=== PATIENT | female | born 1980 | race Caucasian/White ===

== ENCOUNTER → 2018-05-23 | Outpatient (CLI) | payer OTHER | LOC: FIMAGING 09:54 | PROVIDERS: ATTEND Obstetrics & Gynecology | DX: O09.522 Supervision of elderly multigravida, second trimester (principal); Z3A.19 19 weeks gestation of pregnancy ==

== ENCOUNTER 2018-07-10 20:29 | Observation (INO) | payer OTHER ==
--- NOTE | 2018-07-10 21:05 | PDGENHP ---
<Radha Felix E - Last Filed: 07/10/18 21:55> History and Physical History and Physical: Care: [facility] HPI: Patient is a 38yo with IUP@26 weeks that presents to L&D with complaints of ?LOF x 1-2 weeks. She reports having some back pain and increasing pelvic pressure. She denies any strong/intense contractions or VB. She reports active baby. EDC: 10/14/18 Her is complicated by: ama, rh negative Review of Systems: Constitutional: Denies any fever, chills, or fatigue HEENT: denies any visual changes, difficulty swallowing, hearing loss Cardiovascular: Denies any chest pain, palpitations, leg swelling Respiratory: denies any cough, wheezing, or shortness of breathe GI: Denies any nausea, vomiting, diarrhea, constipation : denies any dysuria, urgency, frequency, vaginal bleeding Musculoskeletal: denies any muscle or bone pain Skin: denies any rashes Neuro: denies any headache, seizures, lightheadedness, dizziness, or loss of consciousness Psychiatric: denies any depression, anxiety, or SI/HI thoughts HISTORY: Previous OB history: x3 Past medical history: pt denies any Past surgical history: none Social: Denies any alcohol, tobacco, or drug use. Family history: Not relevant Medications: PNV Allergies (list reaction): NKDA LABS: Rh: A Neg ABS: Neg Rubella: Immune HbsAg: NR HIV: NR VDRL: NR 1hr: not done yet GC: Neg Chlamydia: Neg Pap: Normal GBS: n/a PHYSICAL EXAM: Constitutional: WN, A&Ox3 HEENT: normocephalic atraumatic, supple Skin: Warm, dry, intact Heart: RRR, no murmur Chest: CTA-B Abdomen: Soft, nontender, gravid SVE: closed/thick/high, min amt of yellowish/white d/c noted, nitrazine neg Extremities: no edema, negative homans sign Neuro: grossly normal Psych: normal affect assessment: FHT baseline 140 +accels, no decels, moderate variability Contractions: toco quiet BSUS: breech presentation, JACOBY 11.9cm FfN Negative Amnisure Negative Assessment: 1) 38yo with IUP@26wks 2) No evidence of SROM/PTL 3) JACOBY 11.9cm 4) Cat 1 FHR tracing Plan: 1) d/c home at this time 2) keep next sched appt with [facility] 3) [facility]KC and PTL prec discussed 4) urine cx and BD affirm Pending- will treat if indicated This was reviewed with Amanda Espino MD- aware and agrees with plan of care Today's visit was approximately 60 min, of which >50% of visit 45 min, was spent face to face with pt on direct counseling/coordination of care. <Amanda Espino S - Last Filed: 07/12/18 18:06> History and Physical History and Physical: Fully agree with assessment and plan of care as was reviewed with Radha when patient was evaluated. Amanda Espino MD, [facility], [place]
== END 2018-07-10 22:00 | disposition home or self-care (01) ==
LOC: FLD 20:29
PROVIDERS: ADMIT Hospitalist; ATTEND Hospitalist
DX: O99.89 Other specified diseases and conditions complicating pregnancy, childbirth and the puerperium (principal); M54.9 Dorsalgia, unspecified; O09.522 Supervision of elderly multigravida, second trimester; O26.892 Other specified pregnancy related conditions, second trimester; Z67.91 Unspecified blood type, Rh negative; Z3A.26 26 weeks gestation of pregnancy
CPT/HCPCS: 59025; G0378

== ENCOUNTER 2018-09-18 02:56 | Observation (INO) | payer OTHER ==
[2018-09-18 04:16] LABS: PLATELET COUNT 201 10^3/uL (150-400)
--- NOTE | 2018-09-18 04:52 | GHP ---
DATE OF ADMISSION: 09/18/2018 HISTORY OF PRESENT ILLNESS: The patient is a 38-year-old, 6, para 3-0-2-3, with a last menst rual period of 01/07/2018, and an EDC of 10/14/2018, which was confirmed by an 8-week ultrasound. Rhonda magaña has had good care at [facility] since registration at 8 weeks gestation. Her pr enatal course is complicated by history of pre-eclampsia with G1 and G3, and GBS bacteria. She presents complaining of abdominal pain, back pain, and cramping over the past 24 hours that is increasing in intensity. Also, she has had some diarrhea and has not felt well all day. She denies headache, scotomata, right upper quadrant pain, or any sequelae of pre-eclampsia, and has had good fe dionisio movement, no vaginal bleeding, and no leakage of fluid. She presented for evaluation to Labor an d Delivery, and was found to have elevated blood pressures of 142/99, 147/93, and 127/93. hear t tones were 120s, reactive, category 1. She has toco showing irritability. On her cervical exam, s he is 2, 80, -2, intact, and soft. . PAST OBSTETRICAL HISTORY: 1. April of 2012, she had a viable female, 7 pounds 9 ounces, 40 weeks gestation, and had pre-eclampsia. Was readmitted, had magnesium, and her blood pressures resolved in 2 weeks. 2. May of 2013, she had a spontaneous . 3. May of 2014, a viable male, 6 pounds 15 ounces, 40 weeks gestation, vaginal delivery without c omplication. 4. July of 2016, viable female, 7 pounds 12 ounces, 38 weeks' induction for pre-eclampsia and als o readmission for magnesium and labetalol . 5. In December of this year, she had an early SAB, about 5 weeks. No D and C. GYNECOLOGIC HISTORY: She had menses at age 14. Normal periods every 28 days. Length was 5 days. S ure and regular last menstrual period of 01/07/2018. No history of abnormal Paps, STDs, or any gynec ological problems. PAST MEDICAL HISTORY: No significant past medical history. PAST SURGICAL HISTORY: Only past surgical history is an ankle surgery at age 15. ALLERGIES: She is allergic to morphine. It causes her to stop breathing. CURRENT MEDICATIONS: Only current medications include vitamins with DHA. SOCIAL HISTORY: She is . She lives with her and her 3 children. 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 She denies tobacco, alcohol, and drug use. FAMILY HISTORY: Paternal grandmother had heart disease. Mother has migraines. Paternal grandfather had esophageal cancer. Maternal grandmother, lymphoma, and an uncle with melanoma. LABS: In this , she is A negative, antibody negative. Hepatitis negative. HIV negative. RPR nonreactive. Gonorrhea and chlamydia negative. Immune to varicella. GBS is positive for bacter ia. She had an elevated 1-hour GTT at 150, a negative 3-hour GTT. REVIEW OF SYSTEMS: Negative except for pertinent positives as above in HPI. OBJECTIVE: Today, elevated blood pressure of 142/99, 147/93, 127/93, 134/86. heart tones 120s , reactive, moderate variability, category 1, irritability on toco. Cervix is 2, 80%, -2. She is in tact. Cervix is soft. ASSESSMENT AND PLAN: A 38-year-old 6, para 3-0-2-3, at 36-2/7 weeks gestation with irregular contractions, elevated blood pressures. We will observe her contraction pattern and encourage p.o. hydration, sending PIH labs and a P-to-C ratio in urine. We will watch her blood pressures and keep her for observation for now. Labor will be managed expectantly. I do not suspect active labor at th is time. /[id number]/MODL
--- NOTE | 2018-09-18 09:50 | OBPROG ---
Labor Progress Note Assessment/Plan: Assessment: 38 y/o @ 36 2/7 weeks with elevated BP and contractions. Plan: Labs are reassuring. No s/sx's pre-eclampsia now, but BP concerning for Gestational HTN and she has a significant risk with her history. I instructed pt to check her BP @ home and come to the office Wednesday for a BP check and NST. 09/18/18 09:44 Subjective/Intrapartum Course: 09/18/18 09:41 Pt rested for a few hours. She is comfortable when lying down but continues to feel tightening and pelvic pressure when standing. No LOF,VB and good FM. No ARZATE, scotomata, RUQ pain. Objective: 09/18/18 03:50 09/18/18 03:50 Uric Acid 4.5 mg/dL (2.5-6.8) 09/18/18 03:50 Total Bilirubin 0.2 mg/dL (0.1-1.4) 09/18/18 03:50 Conjugated Bilirubin 0.1 mg/dL (0.0-0.5) 09/18/18 03:50 Unconjugated Bilirubin 0.1 mg/dL (0.0-1.1) 09/18/18 03:50 AST 19 IU/L (14-46) 09/18/18 03:50 ALT 25 IU/L (9-52) 09/18/18 03:50 Lactate Dehydrogenase 564 IU/L (313-618) 09/18/18 03:50 - SVE Dilation (cm): 2 Effacement (%): 80 Station: -2 Membranes: Intact - Contraction Pattern Assessment Current Contraction Pattern: Other (Specify) (irritability) - FHR Assessment Saleh FHR (bpm): 130 FHR Pattern Variability: Moderate FHR Category: 1 - AP Antepartum Course: 09/18/18 09:43 H/o pre-eclampsia PP x 2 with G1 and G3 GBS bacturia Oxytocin Orders Assessment - Pre-Induction/Augmentation Assessment Gestational Age: 36 week(s) and 2 day(s) ICD10 Worksheet Patient Problems: Problems Problem Status Onset (spontaneous vaginal delivery) Acute
== END 2018-09-18 09:59 | disposition home or self-care (01) ==
LOC: FLD 02:56
PROVIDERS: ADMIT Obstetrics & Gynecology; ATTEND Obstetrics & Gynecology
DX: O47.03 False labor before 37 completed weeks of gestation, third trimester (principal); O16.3 Unspecified maternal hypertension, third trimester; O09.523 Supervision of elderly multigravida, third trimester; O99.820 Streptococcus B carrier state complicating pregnancy; Z67.91 Unspecified blood type, Rh negative; Z87.59 Personal history of other complications of pregnancy, childbirth and the puerperium; Z3A.36 36 weeks gestation of pregnancy
CPT/HCPCS: 59025; G0378

== ENCOUNTER 2018-09-24 04:43 | Inpatient (IN) | payer OTHER ==
[2018-09-24] MEDS ORDERED: EPSOM SALT 454 GM TP PRN (04:57)
[2018-09-24] MEDS ORDERED: IBUPROFEN 600 MG TAB PO PRN (04:57)
[2018-09-24] MEDS ORDERED: LIDOCAINE 1% 300 MG/30 ML SDV SC PRN (04:57)
[2018-09-24] MEDS ORDERED: OXYTOCIN/RINGERS LACTATE 1,000 ML IV PRN (04:57)
[2018-09-24] MEDS ORDERED: TERBUTALINE SULFATE 1 MG/ML VIAL IV PRN (04:57)
[2018-09-24] MEDS ORDERED: MISOPROSTOL 200 MCG TAB PR PRN (04:57)
[2018-09-24] MEDS ORDERED: LR 1,000 ML IV PRN (04:57)
[2018-09-24] MEDS ORDERED: OLIVE OIL 118 ML BTL MISC PRN (04:57)
[2018-09-24 05:13] LABS: PLATELET COUNT 164 10^3/uL (150-400)
[2018-09-24] MEDS ORDERED: LIDOCAINE 1% 300 MG/30 ML SDV ONE (07:09)
[2018-09-24] MEDS ORDERED: OLIVE OIL 118 ML BTL ONE (07:10)
[2018-09-24] MEDS ORDERED: MISOPROSTOL 200 MCG TAB ONE (07:10)
[2018-09-24] MEDS ORDERED: AMMONIA AROMATIC 1 EACH AMP IH ONE (07:10)
[2018-09-24] MEDS ORDERED: LR 500 ML IV PRN (08:22)
[2018-09-24] MEDS ORDERED: PENICILLIN G POTASSIUM 5,000,000 UNIT in D5W 150 ML IV ONE (08:25)
[2018-09-24] MEDS ORDERED: OXYTOCIN/RINGERS LACTATE 500 ML IV SCH (08:30)
[2018-09-24] MEDS ORDERED: fentaNYL 2MCG/ML/BUP 0.1% RTU 100 ML BAG EP ONE (10:54)
[2018-09-24] MEDS ORDERED: PHENYLEPHRINE HCL 100 MCG/ML SYR IVP PRN (11:28)
[2018-09-24] MEDS ORDERED: NALOXONE HCL 0.4 MG/ML INJ IVP PRN (11:28)
[2018-09-24] MEDS ORDERED: ONDANSETRON 4 MG/2 ML VIAL IVP PRN (11:28)
--- NOTE | 2018-09-24 11:28 | PREANESOB ---
Obstetric Pre-Anesthesia Info - General Info Proposed Procedure: vaginal delivery NPO Start Time: 07:30 (no solids after 7:30 AM today, clears throughout) : 6 Para: 3 CARMINA: 10/14/18 Gestational Age: 37 week(s) and 1 day(s) - Info Monitors: External FHR Pattern: Reassuring - Labor Status Cervical Dilation per last OB SVE: 2 Station per last OB SVE: -2 Pitocin: In Use PIH: Mild Magnesium Sulfate in Use: No Indications for Labor Analgesia: Pain Control Labor Epidural: Proposed Anesthesia Allergies/Adverse Reactions: Allergy/AdvReac Type Severity Reaction Status Date / Time morphine Allergy Verified 09/24/18 05:13 Home Medications: Medication Instructions Recorded Ranitidine HCl [Zantac 75] 2 tab PO DAILY PRN 07/05/16 Ambien 5 mg PO PRN PRN 09/24/18 Visit Medications: Generic Name Dose Route Start Last Admin Trade Name Freq PRN Reason Stop Dose Admin Lactated Ringer's 1,000 mls @ 0 mls/hr 09/24/18 04:57 09/24/18 08:41 Lr IV 09/25/18 04:56 1,000 mls PRN PRN Administration SEE PROTOCOL CONDITIONS Protocol Per Protocol Oxytocin/Lactated Ringer's 1,000 mls @ 125 mls/hr 09/24/18 04:57 Pitocin 20 Units/Lr (Premix) IV PRN PRN Post bleeding Lactated Ringer's 500 mls @ 500 mls/hr 09/24/18 08:22 Lr IV 09/25/18 08:23 PRN PRN Maternal Hypotension Oxytocin/Lactated Ringer's 500 mls @ 0 mls/hr 09/24/18 08:30 09/24/18 08:41 Pitocin 30 Units/Lr (Premix) IV 03/23/19 08:29 500 mls CONT LILIA Administration Protocol Per Protocol Penicillin G Potassium 2,500, 155 mls @ 155 mls/hr 09/24/18 12:30 000 unit/ Dextrose IV 10/24/18 12:29 Q4HRS LILIA Protocol Ibuprofen 600 mg 09/24/18 04:57 Motrin PO ONCE PRN post , pain Lidocaine HCl 300 mg 09/24/18 04:57 Lidocaine Hcl 1% SC 03/23/19 04:56 ONCE PRN episiotomy Magnesium Sulfate 454 gm 09/24/18 04:57 Epsom Salt TP 03/23/19 04:56 Q1H PRN perineal discomfort Misoprostol 800 - 1,000 mcg 09/24/18 04:57 Cytotec NJ ONCE PRN Vaginal Atony/Bleeding Heron Oil 118 ml 09/24/18 04:57 Sweet Oil MISC 03/23/19 04:56 ONCE PRN perineal massage Terbutaline Sulfate 0.25 mg 09/24/18 04:57 Brethine IV 03/23/19 04:56 ONCE PRN Tachysystole Discontinued Medications Generic Name Dose Route Start Last Admin Trade Name Freq PRN Reason Stop Dose Admin Ammonia (Aromatic Spirit) Confirm 09/24/18 07:10 Ammonia Aromatic Administered 09/24/18 07:11 Dose 1 each IH .STK-MED ONE Fentanyl/Bupivacaine HCl Confirm 09/24/18 10:54 Fentanyl/Bupivacaine/Ns 2 Mcg/Ml 0.1% (Premix Administered 09/24/18 10:55 Dose 100 ml EP .STK-MED ONE Penicillin G Potassium 5,000, 160 mls @ 160 mls/hr 09/24/18 08:25 09/24/18 09 :02 000 unit/ Dextrose IV 09/24/18 09:24 160 mls ONCE ONE Administration Protocol Lidocaine HCl Confirm 09/24/18 07:09 Lidocaine Hcl 1% Administered 09/24/18 07:10 Dose 300 mg .ROUTE .STK-MED ONE Misoprostol Confirm 09/24/18 07:10 Cytotec Administered 09/24/18 07:11 Dose 1,000 mcg .ROUTE .STK-MED ONE Heron Oil Confirm 09/24/18 07:10 Sweet Oil Administered 09/24/18 07:11 Dose 118 ml .ROUTE .STK-MED ONE - Anesthesia History Response to Local Anesthetics: Normal Anesthesia & Operative History: No Prior Problems Family Anesthesia History: Negative - Social History Substance Use/Abuse: Denies - Vital Signs Latest Vital Signs (Nursing): See nursing flowsheet Height/Weight (Nursing): Height 172.72 cm Weight 88.451 kg Weight: 88 kg Height: 173 cm - Focused Exam Neck exam: FROM Mallampati Score: Class 2 Mouth exam: normal dental/mouth exam Pulmonary: clear to auscultation Cardiovascular: regular rate and rhythym Labs: 09/24/18 05:00 09/24/18 05:00 Patient ABO/Rh A NEGATIVE 09/24/18 06:20 Uric Acid 5.6 mg/dL (2.5-6.8) 09/24/18 05:00 Total Bilirubin 0.4 mg/dL (0.1-1.4) 09/24/18 05:00 Conjugated Bilirubin 0.1 mg/dL (0.0-0.5) 09/24/18 05:00 Unconjugated Bilirubin 0.3 mg/dL (0.0-1.1) 09/24/18 05:00 AST 19 IU/L (14-46) 09/24/18 05:00 ALT 22 IU/L (9-52) 09/24/18 05:00 Lactate Dehydrogenase 492 IU/L (313-618) 09/24/18 05:00 - Plan Anesthetic Plan: ILSA Consent Signed and on Chart: Yes Patient/Guardian Understands and Agrees to Plan: Yes Urgent/Emergent Case: Agnes arce completed preop but documented later for safe timely pt care
[2018-09-24] MEDS ORDERED: LR 500 ML IV SCH (11:30)
[2018-09-24] MEDS ORDERED: fentaNYL 2MCG/ML/BUP 0.1% RTU 100 ML EP SCH (11:30)
[2018-09-24] MEDS ORDERED: PENICILLIN G POTASSIUM 2,500,000 UNIT in D5W 150 ML IV SCH (12:30)
--- NOTE | 2018-09-24 13:01 | GHP ---
DATE OF ADMISSION: 09/24/2018 HISTORY UPON ADMISSION: The patient is a 38-year-old, G6, P3, A2 with sure last menstrual period of 01/07/2018, with an estimated due date of October 14, confirmed with an 8-week ultrasound. The patie nt presented to labor and delivery at approximately 3:00 a.m. after awakening and not feeling right. She checked her blood pressure at home at 156/105. The patient presented to the labor and delivery for evaluation. Initial blood pressure was 166/103, however, subsequent blood pressures in the 120s to 130s over 90s persistently. The patient had PIH labs drawn, which are all in the normal range wit h platelets 164,000, and a P to C ratio of 1.7. With persistence of the blood pressure in the diasto lic 90s range, the patient was advised that it is prudent to proceed with delivery as the patient is now 37 weeks gestation with gestational hypertension, The patient has had 2 other pregnancies in [facility] she has had worsening to preeclampsia and needed magnesium sulfate around the . One presented with worsening pain and was readmitted after her first. The patient is hopeful that she can avoid the magnesium sulfate and would like to proceed with delivery before things worsen. The pa radha is advised that there might be mild issues for the baby, however, generally the risk is low. The patient wants to proceed and was started on Pitocin for labor induction. The patient had a favorable cervix in the office on September 23 at 3 cm dilated, 80% effaced, -2 station. Bag of rosalino er is intact and the patient is not having any regular contractions. The patient denies any headache , but occasionally feels dizzy when her blood pressure is elevated. The patient has not had nausea o r vomiting. She has essentially no peripheral edema. CURRENT LABS: Maternal blood type A negative with negative antibody screen. RPR nonreacti ve. Rubella low positive with antibody level of 12.2. Hepatitis B surface antigen is negative. HIV negative. Initial H and H 12 and 37 with a dropped to 10 and 32 mid . The patient has bee n on iron therapy. Platelets initially 239. Varicella immune. GBS culture in the urine positive at the beginning of . Pap smear negative. Gonorrhea and chlamydia negative. A 1-hour Glucol a was elevated with a followup 3-hour GTT that was normal. The patient did receive RhoGAM on July 22. A vaginal GBS culture was done later in and was negative. However, we will treat bas ed on the initial urine positive culture. CURRENT HISTORY: The patient has been followed with [facility] since 8 weeks ges tation. The patient has had several ultrasounds that have shown good estimated weight and the last o ne at 35 weeks revealed 87th percentile weight. Good fluid on ultrasound. The patient's w as complicated with pneumonia diagnosed in August and the patient had a course of Augmentin for rola atment. The patient has also had difficulty sleeping throughout the and has tried Benadryl , magnesium, and has occasionally used Ambien as she had no benefit from the other approaches. The p ivet has a blood pressure cuff at home and has been periodically monitoring her blood pressure as s he did have complications in the other pregnancies. She reports she would occasionally get more elev ated blood pressures in the 140s to 150s over 90s to 100s, but also very normal blood pressures at ti mes. Generally, the blood pressures would improve with rest. PAST MEDICAL HISTORY: No significant history. PAST SURGICAL HISTORY: Ankle surgery at the age of 15. PAST OBSTETRIC HISTORY: In April 2012, a viable female at 7 pounds 9 ounces at 40 weeks. She was arnoldo dmitted for preeclampsia and had a course of magnesium. Blood pressures normal by 2 weeks . In May 2013, a SAB. In May 2014, a viable male at 6 pounds 15 ounces at 40 weeks with a vag inal delivery, uncomplicated. In July 2016, a viable female, 7 pounds 12 ounces at 38 weeks, bein g induced for preeclampsia. Patient was sent home on antihypertensives and was readmitted with some elevated blood pressures, but did not get magnesium sulfate. In December of 2017, an early SAB. PAST HOT WALKER HISTORY: Normal with no abnormal Paps or STDs. CURRENT MEDICATIONS: Only vitamins with iron. SOCIAL HISTORY: Negative x3. Patient and lives with her and 3 children. PHYSICAL EXAMINATION: Upon admission, the patient is a well-developed, well-nourished white female i n no physical distress. Initial blood pressure 166/103, but thereafter generally 120s to 130s over 9 0s with occasional very normal low blood pressures. The patient is afebrile. See computer and chart ing for full documentation. ADMISSION LAB: Reveals a white count of 8, with H and H of 10 and 32, and platelet count a 164,000. PIH panel all normal with a creatinine of 0.7, uric acid of 5.6. Liver function tests normal. P to C ratio is 1.7. Abdomen shows a gravid uterus. heart tone monitoring reveals initially a reactive NST and then on continuous monitoring, category 1 tracing with baseline in the 140s with good variability and acc elerations. No decelerations noted. Only rare initial contractions, but now contraction frequency i s picking up with Pitocin to every 2 to 4 minutes. The patient has just received an epidural for lab or comfort. The patient has received her 1st dose of penicillin and is due for her 2nd dose in appro ximately an hour. After that point, we will perform a ROM and expect a vaginal delivery. Will watch blood pressures closely . ASSESSMENT: Intrauterine at 37 weeks gestation with gestational hypertension. Blood press ures are persisting with 90s diastolic and decision made to induce with history of progression to pre eclampsia with other pregnancies. Currently at this time, the patient is asymptomatic with lab and u rine normal. PLAN: Pitocin going currently for induction with a favorable cervix. We will AROM after the 2nd dos e of antibiotics and the patient has an epidural in place. /[id number]/MODL
--- NOTE | 2018-09-24 13:57 | OBPROG ---
Labor Progress Note Assessment/Plan: Assessment: IUP at 37w1d with gest HTN induction with pitocin baby's station higher than yesterday, likely due to ILSA, unable to AROM at this time +GBS, on PCN Plan: cont pitocin, AROM when able 09/24/18 13:53 Subjective/Intrapartum Course: 09/24/18 13:55 Pt comfortable with ILSA, Wants AROM to stim for labor - on exam /-3, can push up out of pelvis, won't AROM at this time Objective: 09/24/18 05:00 09/24/18 05:00 Patient ABO/Rh A NEGATIVE 09/24/18 06:20 Uric Acid 5.6 mg/dL (2.5-6.8) 09/24/18 05:00 Total Bilirubin 0.4 mg/dL (0.1-1.4) 09/24/18 05:00 Conjugated Bilirubin 0.1 mg/dL (0.0-0.5) 09/24/18 05:00 Unconjugated Bilirubin 0.3 mg/dL (0.0-1.1) 09/24/18 05:00 AST 19 IU/L (14-46) 09/24/18 05:00 ALT 22 IU/L (9-52) 09/24/18 05:00 Lactate Dehydrogenase 492 IU/L (313-618) 09/24/18 05:00 - SVE Dilation (cm): 4 Effacement (%): 80 Station: -3 Membranes: Intact - Contraction Pattern Assessment Current Contraction Pattern: Regular (on 14 mu/min pitocin) - FHR Assessment Saleh FHR (bpm): 130 FHR Pattern Variability: Moderate FHR Category: 1 - AP Antepartum Course: 09/24/18 13:58 gest HTN with b/p up to 150/100s, mainly 130s/90s - decision for induction, mainly 120/70-80s after ILSA Oxytocin Orders Assessment - Pre-Induction/Augmentation Assessment Gestational Age: 37 week(s) and 1 day(s) ICD10 Worksheet Patient Problems: Problems Problem Status Onset Gestational hypertension Acute
[2018-09-24] MEDS: PENICILLIN G POTASSIUM 2,500,000 UNIT in D5W 150 ML IV SCH ×2 (16:27→22:08)
--- NOTE | 2018-09-24 16:29 | OBPROG ---
Labor Progress Note Assessment/Plan: Assessment: IUP at 37w1d with gest HTN induction with pitocin AROM - abundant fluid, clear +GBS, on PCN Plan: AROM, cont on pit 09/24/18 13:53 09/24/18 16:26 Subjective/Intrapartum Course: 09/24/18 13:55 Pt comfortable with ILSA, Wants AROM to stim for labor - on exam /-3, can push up out of pelvis, won't AROM at this time 09/24/18 16:27 Pt comf now, but helped with pushing ILSA bolus once approx 2p. Able to AROM at 16:13. exam /-2, on pit 16 Objective: 09/24/18 05:00 09/24/18 05:00 Patient ABO/Rh A NEGATIVE 09/24/18 06:20 Uric Acid 5.6 mg/dL (2.5-6.8) 09/24/18 05:00 Total Bilirubin 0.4 mg/dL (0.1-1.4) 09/24/18 05:00 Conjugated Bilirubin 0.1 mg/dL (0.0-0.5) 09/24/18 05:00 Unconjugated Bilirubin 0.3 mg/dL (0.0-1.1) 09/24/18 05:00 AST 19 IU/L (14-46) 09/24/18 05:00 ALT 22 IU/L (9-52) 09/24/18 05:00 Lactate Dehydrogenase 492 IU/L (313-618) 09/24/18 05:00 - SVE Dilation (cm): 5 Effacement (%): 90 Station: -2 Membranes: AROM, Intact Amniotic Fluid Color: Clear - Contraction Pattern Assessment Current Contraction Pattern: Regular (on 16 mu/min ctxns q 3 min) - FHR Assessment Saleh FHR (bpm): 120 FHR Pattern Variability: Moderate FHR Category: 1 - Procedures Non-surgical Procedures: Amniotomy - AP Antepartum Course: 09/24/18 13:58 gest HTN with b/p up to 150/100s, mainly 130s/90s - decision for induction, mainly 120/70-80s after ILSA Oxytocin Orders Assessment - Pre-Induction/Augmentation Assessment Gestational Age: 37 week(s) and 1 day(s) ICD10 Worksheet Patient Problems: Problems Problem Status Onset Gestational hypertension Acute
--- NOTE | 2018-09-24 17:53 | OBPROG ---
Labor Progress Note Assessment/Plan: Assessment: IUP at 37w1d with gest HTN --FEELING MORE DISCOMFORT induction with pitocin AROM - abundant fluid, clear +GBS, on PCN Plan: CX CHANGED TO , pushing bolus button 09/24/18 13:53 09/24/18 16:26 09/24/18 17:50 Subjective/Intrapartum Course: 09/24/18 13:55 Pt comfortable with ILSA, Wants AROM to stim for labor - on exam /-3, can push up out of pelvis, won't AROM at this time 09/24/18 16:27 Pt comf now, but helped with pushing ILSA bolus once approx 2p. Able to AROM at 16:13. exam 2, on pit 16 09/24/18 17:50 Pt feeling discomfort. wants to push button. Cx still clear fluid. FHTs with variables, good recovery and GBTBV Objective: 09/24/18 05:00 09/24/18 05:00 Patient ABO/Rh A NEGATIVE 09/24/18 06:20 Uric Acid 5.6 mg/dL (2.5-6.8) 09/24/18 05:00 Total Bilirubin 0.4 mg/dL (0.1-1.4) 09/24/18 05:00 Conjugated Bilirubin 0.1 mg/dL (0.0-0.5) 09/24/18 05:00 Unconjugated Bilirubin 0.3 mg/dL (0.0-1.1) 09/24/18 05:00 AST 19 IU/L (14-46) 09/24/18 05:00 ALT 22 IU/L (9-52) 09/24/18 05:00 Lactate Dehydrogenase 492 IU/L (313-618) 09/24/18 05:00 - SVE Dilation (cm): 7 Effacement (%): 90 Station: -1 Membranes: AROM, Intact Amniotic Fluid Color: Clear - Contraction Pattern Assessment Current Contraction Pattern: Regular (on 16 pit, ctxns q 2-3 min) - FHR Assessment Saleh FHR (bpm): 130 FHR Pattern Variability: Moderate FHR Category: 2 (with variable decels, quick recovery) - Procedures Non-surgical Procedures: Amniotomy - AP Antepartum Course: 09/24/18 13:58 gest HTN with b/p up to 150/100s, mainly 130s/90s - decision for induction, mainly 120/70-80s after ILSA Oxytocin Orders Assessment - Pre-Induction/Augmentation Assessment Gestational Age: 37 week(s) and 1 day(s) ICD10 Worksheet Patient Problems: Problems Problem Status Onset Gestational hypertension Acute
[2018-09-24] MEDS ORDERED: MEASLES,MUMPS&RUBELLA VACC/PF 0.5 ML VIAL SC ONE (18:42)
--- NOTE | 2018-09-24 18:46 | OBDEL ---
Info Type: Vaginal Presentation at Delivery: Vertex L&D Analgesia/Anesthesia Type: Epidural GBS+: Yes (PCN x 3 doses) Intrapartum Medications: Generic Name Dose Route Start Last Admin Trade Name Freq PRN Reason Stop Dose Admin Lactated Ringer's 1,000 mls @ 0 mls/hr 09/24/18 04:57 09/24/18 08:41 Lr IV 09/25/18 04:56 1,000 mls PRN PRN Administration SEE PROTOCOL CONDITIONS Protocol Per Protocol Oxytocin/Lactated Ringer's 500 mls @ 0 mls/hr 09/24/18 08:30 09/24/18 08:41 Pitocin 30 Units/Lr (Premix) IV 03/23/19 08:29 500 mls CONT LILIA Administration Protocol Per Protocol Penicillin G Potassium 2,500, 155 mls @ 155 mls/hr 09/24/18 16:30 09/24/18 16 :27 000 unit/ Dextrose IV 10/24/18 16:29 155 mls Q4H LILIA Administration Protocol Discontinued Medications Generic Name Dose Route Start Last Admin Trade Name Freq PRN Reason Stop Dose Admin Penicillin G Potassium 5,000, 160 mls @ 160 mls/hr 09/24/18 08:25 09/24/18 09 :02 000 unit/ Dextrose IV 09/24/18 09:24 160 mls ONCE ONE Administration Protocol Penicillin G Potassium 2,500, 155 mls @ 155 mls/hr 09/24/18 12:30 09/24/18 12 :27 000 unit/ Dextrose IV 10/24/18 12:29 155 mls Q4HRS LILIA Administration Protocol - Hospital Course Intrapartum: 09/24/18 13:55 Pt comfortable with ILSA, Wants AROM to stim for labor - on exam /-3, can push up out of pelvis, won't AROM at this time 09/24/18 16:27 Pt comf now, but helped with pushing ILSA bolus once approx 2p. Able to AROM at 16:13. exam /-2, on pit 16 09/24/18 17:50 Pt feeling discomfort. wants to push button. Cx /-1 still clear fluid. FHTs with variables, good recovery and GBTBV Indications for Delivery: Gestational Hypertension Vaginal Delivery - Delivery Provider Delivery Physician/CNM: Pamela Morgan - Labor and Delivery Onset of Contractions Date: 09/24/18 Onset of Contractions Time: 16:13 Onset of Contractions Type: Induced Rupture of Membranes Date: 09/24/18 Rupture of Membranes Time: 16:13 Rupture of Membranes Type: Artificial Amniotic Fluid Color: Clear Dilation Complete Date: 09/24/18 Dilation Complete Time: 18:10 Placenta Delivery Date: 09/24/18 Placenta Delivery Time: 18:21 Total Hours of Labor: 2 Non-surgical Procedures: Amniotomy Laceration: 1st Degree (right perineal) Repair: Other (Specify) (none required) Vaginal Sponge Count Correct: Yes Vaginal Needle Count Correct: Yes Vaginal Sweep Performed: Yes EBL: 300 Delivery Events: None - Medications Labor Augmentation/Induction Methods Used: Pitocin Labor Augmentation/Induction Indication: Other (Specify) (gestational hypertension) [place] Data CARMINA: 10/14/18 Gestational Age: 37 week(s) and 1 day(s) Saleh Delivery Date: 09/24/18 Delivery Time: 18:15 Sex of : Male ([place]) Score (1 Min): 8 Score (5 Min): 9 ICD10 Worksheet Patient Problems: Problems Problem Status Onset (spontaneous vaginal delivery) Acute Gestational hypertension Acute
[2018-09-24] MEDS: IBUPROFEN 600 MG TAB PO SCH (23:44)
[2018-09-25] MEDS: ACETAMINOPHEN 325 MG TAB PO SCH ×4 (01:19→23:58)
[2018-09-25] MEDS: IBUPROFEN 600 MG TAB PO SCH ×4 (05:56→23:57)
[2018-09-25] MEDS ORDERED: IRON POLYSAC/IRON HEME 28 MG TAB PO SCH (09:00)
--- NOTE | 2018-09-25 11:05 | OBPP ---
Progress Note Assessment/Plan: Assessment: PPD1 s/p following IOL for gestational HTN (mild) at 37 wks. GHTN: Labs normal on admission, BP's normal range to low mild now. No concerning s/sx. No meds. PP BP check after discharge. Routine cares otherwise. Anemia - BID Ferrous Sulfate. MMR and RhoGam as indicated. Low normal Rubella titer. GBS positive (urine) - Adequate abx. JM Subjective/ Course: 09/25/18 11:25 Kori is doing well this AM, denies any new s/sx of PIH. BPs normal range to low mild range. Pain controlled. BF going well. Would prefer to stay until tomorrow. Objective: 09/24/18 05:00 09/24/18 05:00 Patient ABO/Rh A NEGATIVE 09/24/18 20:00 Uric Acid 5.6 mg/dL (2.5-6.8) 09/24/18 05:00 Total Bilirubin 0.4 mg/dL (0.1-1.4) 09/24/18 05:00 Conjugated Bilirubin 0.1 mg/dL (0.0-0.5) 09/24/18 05:00 Unconjugated Bilirubin 0.3 mg/dL (0.0-1.1) 09/24/18 05:00 AST 19 IU/L (14-46) 09/24/18 05:00 ALT 22 IU/L (9-52) 09/24/18 05:00 Lactate Dehydrogenase 492 IU/L (313-618) 09/24/18 05:00 Temp Pulse Resp BP Pulse Ox 36.7 C 67 16 127/85 H 96 09/25/18 08:00 09/25/18 08:00 09/25/18 08:00 09/25/18 08:00 09/25/18 08:00 Uterine Position/Fundal Height: At Umbilicus Uterine Tone: Firm
[2018-09-25] MEDS: FERROUS SULFATE 325 MG TAB PO SCH (12:16)
--- NOTE | 2018-09-25 20:26 | POSTANESTH ---
Post Anesthetic Evaluation Cardiovascular Status: Normal, Stable Respiratory Status: Normal, Stable Level of Consciousness/Mental Status: Can Participate in Eval, Alert and Oriented Pain Control: Adequate, Prn Tx Ordered Nausea/Vomiting Control: Adequate, Prn Tx Ordered Complications Possibly Related to Anesthesia: None Noted Notes: Pt reports epidural provided inadequate analgesia for last 20 minutes of labor during a time of rapid cervical dilation and descent. Insufficient time for bolus button to catch up with changing pain levels. Otherwise no problems with epidural.
[2018-09-26] MEDS: IBUPROFEN 600 MG TAB PO SCH (06:03)
--- NOTE | 2018-09-26 08:07 | OBPP ---
Progress Note Assessment/Plan: Assessment: PPD 2 s/p gest HTN, now 80s diastolic anemia on admit Plan: d/c home today. cont iron daily 09/24/18 13:53 09/24/18 16:26 09/24/18 17:50 09/26/18 08:06 Subjective/ Course: 09/25/18 11:25 Kori is doing well this AM, denies any new s/sx of PIH. BPs normal range to low mild range. Pain controlled. BF going well. Would prefer to stay until tomorrow. 09/26/18 08:25 Pt doing great. BF well. nipples sore but typical for her - no blisters. bld is light and mod cramps - akshat with ibu. hydrating well. urinating fine. Objective: 09/24/18 05:00 09/24/18 05:00 Patient ABO/Rh A NEGATIVE 09/24/18 20:00 Uric Acid 5.6 mg/dL (2.5-6.8) 09/24/18 05:00 Total Bilirubin 0.4 mg/dL (0.1-1.4) 09/24/18 05:00 Conjugated Bilirubin 0.1 mg/dL (0.0-0.5) 09/24/18 05:00 Unconjugated Bilirubin 0.3 mg/dL (0.0-1.1) 09/24/18 05:00 AST 19 IU/L (14-46) 09/24/18 05:00 ALT 22 IU/L (9-52) 09/24/18 05:00 Lactate Dehydrogenase 492 IU/L (313-618) 09/24/18 05:00 Temp Pulse Resp BP Pulse Ox 37.5 C 76 16 128/88 H 95 09/25/18 19:49 09/25/18 19:49 09/25/18 19:49 09/25/18 19:49 09/25/18 19:49 Uterine Position/Fundal Height: Umbilicus -1 Uterine Tone: Firm Physical Exam - Physical Exam Abdomen: non-tender, soft, other (FF at umb -1) Extremities: non-tender, pedal edema (minimal) Skin: normal color, warm/dry Neuro/Psych: alert, normal mood/affect
[2018-09-26 08:21] VITALS: BP 123/83
--- NOTE | 2018-09-26 08:28 | OBGCSDC ---
General Delivery Information - General Info : 6 Para: 4 Abortions: 2 Type: Vaginal L&D Analgesia/Anesthesia Type: Epidural Admission Date: 09/24/18 Labs: Patient ABO/Rh A NEGATIVE 09/24/18 20:00 Hct 32.6 % (38.0-47.0) L 09/24/18 05:00 - Hospital Course Antepartum: 09/24/18 13:58 gest HTN with b/p up to 150/100s, mainly 130s/90s - decision for induction, mainly 120/70-80s after ILSA Intrapartum: 09/24/18 13:55 Pt comfortable with ILSA, Wants AROM to stim for labor - on exam /-3, can push up out of pelvis, won't AROM at this time 09/24/18 16:27 Pt comf now, but helped with pushing ILSA bolus once approx 2p. Able to AROM at 16:13. exam /-2, on pit 16 09/24/18 17:50 Pt feeling discomfort. wants to push button. Cx /-1 still clear fluid. FHTs with variables, good recovery and GBTBV : 09/25/18 11:25 Kori is doing well this AM, denies any new s/sx of PIH. BPs normal range to low mild range. Pain controlled. BF going well. Would prefer to stay until tomorrow. 09/26/18 08:25 Pt doing great. BF well. nipples sore but typical for her - no blisters. bld is light and mod cramps - akshat with ibu. hydrating well. urinating fine. Vaginal - Delivery Provider Delivery Physician/CNM: Pamela Morgan - Diagnosis Labor: Induced Rupture of Membranes Type: Artificial Amniotic Fluid Color: Clear Laceration: 1st Degree (right perineal) Repair: Other (Specify) (none required) Delivery Events: None - Procedures Non-surgical Procedures: Amniotomy - Delivery Non-surgical Procedures: Amniotomy EBL: 300 Data CARMINA: 10/14/18 Gestational Age: 37 week(s) and 3 day(s) Saleh Delivery Date: 09/24/18 Delivery Time: 18:15 Sex of Infant: Male Weight (gm): 3230 g Score (1 Min): 8 Score (5 Min): 9 Discharge Information - Discharge Information Condition: Good Instruction/Follow Up: See Instruction Sheet, One Week (this or wednesday), Four Weeks (3-4 wks with therapist), Six Weeks
[2018-09-26] MEDS: FERROUS SULFATE 325 MG TAB PO SCH (08:34)
[2018-09-26] MEDS: ACETAMINOPHEN 325 MG TAB PO SCH (08:36)
== END 2018-09-26 12:30 | disposition home or self-care (01) | DRG 807 ==
LOC: FLD 04:43 → OBSVTOIN 04:59 → FOB 21:20
PROVIDERS: ADMIT Obstetrics & Gynecology; ATTEND Obstetrics & Gynecology
PROC: 0HQ9XZZ Repair Perineum Skin, External Approach (ICD-10-PCS; principal; 2018-09-24)
PROC: 10907ZC Drainage of Amniotic Fluid, Therapeutic from Products of Conception, Via Natural or Artificial Opening (ICD-10-PCS; principal; 2018-09-24)
PROC: 10E0XZZ Delivery of Products of Conception, External Approach (ICD-10-PCS; principal; 2018-09-24)
DX: O13.4 Gestational [pregnancy-induced] hypertension without significant proteinuria, complicating childbirth (principal); O99.824 Streptococcus B carrier state complicating childbirth; O90.81 Anemia of the puerperium; O70.0 First degree perineal laceration during delivery; Z3A.37 37 weeks gestation of pregnancy; Z37.0 Single live birth
CPT/HCPCS: J2540; J2590